=== PATIENT | male | born 1970 | race Two or more races ===

== ENCOUNTER 2025-02-27 21:59 | Emergency (ER) | payer OTHER, MEDICAID ==
[~2025-02-27] VITALS: Ht 177.8 cm; Wt 80.6 kg
--- NOTE | 2025-02-27 22:42 | ED.PDOC ---
History of Present Illness HPI Comments Patient 54-year-old male who arrives the ED today for evaluation of had neck pain concerns. Patient states he has had head and neck pain concerns for the past six years that were worker's comp event. Patient is seen multiple providers, has a received multiple head CT and MRI evaluation as well as cervical spine evaluations. Patient denies any recent trauma. Vital signs were stable. Chief Complaint: Headache Time Seen by MD: 22:07 Reviewed Notes: Nurses Notes Allergies: Coded Allergies: NO KNOWN ALLERGIES (Unverified , 02/27/25) Information Source: Patient, Friend Mode of Arrival: Ambulatory Severity: Moderate Timing: Months Duration: Intermittent Prehospital treatment: Treatment Past Medical History PAST MEDICAL HISTORY: Denies Family History Family History: Reviewed,noncontributory to illness, No family hx of Cancer, No family hx of DM, No family hx of Heart jose j, No family hx of HTN, No family hx ofKidney jose j, No family hx of Liver jose j, No family hx of Lung jose j, No family hx of Stroke Social History Smoker: Non-Smoker Alcohol: Denies ETOH Use Drugs: Denies Drug Use Lives In: Home Constitutional: denies: chills, diaphoresis, fatigue, fever, malaise, sweats, weakness, others EENTM: denies: blurred vision, double vision, ear bleeding, ear discharge, ear drainage, ear pain, ear ringing, eye pain, eye redness, hearing loss, mouth pain, mouth swelling, nasal discharge, nose bleeding, nose congestion, nose pain, photophobia, tearing, throat pain, throat swelling, voice changes, others Respiratory: denies: cough, hemoptysis, orthopnea, SOB at rest, shortness of breath, SOB with excertion, stridor, wheezing, others Cardiovascular: denies: chest pain, dizzy spells, diaphoresis, Dyspnea on exertion, edema, irregular heart beat, left arm pain, lightheadedness, palpitations, PND, syncope, others Gastrointestinal: denies: abdomen distended, abdominal pain, blood streaked bowels, constipated, diarrhea, dysphagia, difficulty swallowing, hematemesis, melena, nausea, poor appetite, poor fluid intake, rectal bleeding, rectal pain, vomiting, others Genitourinary: denies: burning, dysuria, flank pain, frequency, hematuria, incontinence, penile discharge, penile sore, pain, testicle pain, testicle swelling, urgency, others Neurological: reports: headache; denies: dizziness, fainting, left sided numbness, left sided weakness, numbness, paresthesia, pre-existing deficit, right sided numbness, right sided weakness, seizure, speech problems, tingling, tremors, weakness, others Musculoskeletal: reports: neck pain; denies: back pain, gout, joint pain, joint swelling, muscle pain, muscle stiffness, others Integumetry: denies: bruises, change in color, change in hair/nails, dryness, laceration, lesions, lumps, rash, wounds, others Allergic/Immunocompromised: denies: Difficulty Healing, Frequent Infections, Hives, Itching, others Hematologic/Lymphatic: denies: anemia, blood clots, easy bleeding, easy bruising, swollen glands, others Endocrine: denies: excessive hunger, excessive sweating, excessive thirst, excessive urination, flushing, intolerance to cold, intolerance to heat, unexplained weight gain, unexplained weight loss, others Psychiatric: reports: anxiety; denies: bipolar disorder, depression, hopeless, panic disorder, schizophrenia, sleepless, suicidal, others Physical Exam General Appearance: Moderate Distress ([id number] distress due to headache and neck pain concerns.), Normal HEENT: Head (Head was unremarkable. No signs of trauma. No skull depressions or deformities.), Normal ENT Inspection, Pharynx Normal, TMs Normal Neck: Other (Unremarkable evaluation of cervical spine. Some reduced range of motion with mild tenderness bilaterally. No step-offs noted. No signs of acute trauma.) Respiratory: Chest Non-Tender, Lungs Clear, No Accessory Muscle Use, No Respiratory Distress, Normal Breath Sounds Cardiovascular: No Edema, No JVD, No Murmur, No Gallop, Normal Peripheral Pulses, Regular Rate/Rhythm Breast Exam: Deferred Gastrointestinal: No Organomegaly, Non Tender, No Pulsatile Mass, Normal Bowel Sounds, Soft Genitalia: Deferred Pelvic: Deferred Rectal: Deferred Extremities: No calf tenderness, Normal inspection, Non-tender Neurologic: Alert Cerebellar Function: NOT DONE Reflexes: NOT DONE Skin: Dry, Normal Color, Warm Lymphatic: No Adenopathy Was a procedure done? Was a procedure done?: No Differential Dx Considerations may include: Chronic head pain, chronic neck pain X-Ray, Labs, Meds, VS Vital Signs Date Time Temp Pulse Resp B/P (MAP) Pulse Ox O2 Delivery O2 Flow Rate FiO2 02/27/25 22:10 97.0 75 18 126/90 97 97.0 X-Ray, Labs, Meds, VS Comment Spent time discussing the patient's concerns with him. Advised that he has received extensive studies on both parts of the body and that he needs to continue follow up with his worker's [employer] provider for continued management. Time of 1ST Reevaluation: 22:40 Reevaluation 1ST: Improved Consultation: PCP, Other ([employer] [employer] provider) Patient Education/Counseling: Diagnosis, Treatment Family Education/Counseling: Diagnosis, Treatment SEPSIS Sepsis Screen Date sepsis recognized/suspect: Feb 27, 2025 Time Sepsis recognized/suspect: 2212 Recent Procedure: No On Antibiotic Therapy: No Respiratory Rate >20: No Heart Rate >90: No Temp<36 C (96.8 F) or >38.3 C: No SBP <90 or MAP <65 mmHG: No New Acute Mental Status Change: No Is the patient on CPAP, BIPAP,: No Physician Orders Hydrocodone-Acet 10/325mg Tab ([place] 10/ (02/27/25 22:45) Vital Signs Date Time Temp Pulse Resp B/P (MAP) Pulse Ox O2 Delivery O2 Flow Rate FiO2 02/27/25 22:10 97.0 75 18 126/90 97 97.0 Departure 1 Departure Time of Disposition: 22:41 Impression: Primary Impression: Chronic headache Additional Impression: Chronic neck pain Disposition: 01 HOME / SELF CARE / HOMELESS Condition: Stable Additional Instructions: Patient needs to follow up with the [employer]'s [employer] provider or additional specialist for long-term management of his chronic headache and neck pain concerns. Patient should also discuss pain management establishment moving forward. Discharged With: Self, Friend Critical Care Note Critical Care Time?: No Stability Stability form required: No Heart Score Heart Score: Heart Score Response (Comments) Value History N/A 0 EKG N/A 0 Age N/A 0 Risk Factors N/A 0 Troponin N/A 0 Total 0 JADE SOMERS PAC Feb 27, 2025 22:42
[2025-02-27] MEDS: HYDROcodone-ACET 10/325MG TAB PO ONE (22:45)
[2025-02-28 00:40] VITALS: BP 126/78; PULSE 85; RESP 16; TEMP 98.2; O2SAT 95
== END 2025-02-28 00:50 | disposition home or self-care (01) ==
LOC: ER 22:04
DX: G89.29 Other chronic pain (principal); M54.2 Cervicalgia; R51.9 Headache, unspecified